=== PATIENT | female | born 1985 | race American Indian/Alaskan Native ===

== ENCOUNTER 2017-05-25 10:19 | Emergency (ER) | payer MEDICAID ==
--- NOTE | 2017-05-25 11:18 | XRay Report ---
RIGHT SHOULDER RADIOGRAPHS INDICATION: Right shoulder pain. COMPARISON: None similar. FINDINGS: Frontal and Y views of the right shoulder, 3 projections demonstrate normal humeral head contour, well positioned against the glenoid. Normal acromioclavicular joint. Preserved scapular contour. Normal visualized soft tissues, right ribs and lung. CONCLUSION: No acute right shoulder radiographic abnormality, as described. Thank you for the opportunity to participate in this patient's care.
[2017-05-25] MEDS ORDERED: TORADOL IM ONE (12:49)
[2017-05-25] MEDS ORDERED: TORADOL ONE (12:49)
--- NOTE | 2017-05-25 12:54 | Emergency Department Report ---
ED Chest Pain HPI - General Chief Complaint: Extremity Problem,Nontraumatic Stated Complaint: CP X 3 DAYS Time Seen by Provider: 05/25/17 12:43 Source: patient Mode of arrival: Ambulatory Limitations: No Limitations - History of Present Illness Initial Comments: 31-year-old female with past medical history denies diabetes presents complaining of right-sided chest pain 2-4 days. Pain is sharp, constant, worse with movement and palpation. Pain is also felt in her right parascapular area when bending forward. Pain rated 6/10 intensity. Patient is right-hand dominant. 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 She does not work at this daycare daily and does not perform heavy lifting on a regular basis. No nasal shortness of breath, calf tenderness, edema, cough, fever, nausea, vomiting, or diaphoresis. No long- distance travel within 1 month and no previous history of DVT/PE or control pill use here patient also has a history of oral herpes and has a rash that occurred to the right side of her face lateral to her lips. - Related Data Previous Rx's Medication Instructions Recorded Last Taken Type HYDROcodone/ACETAMINOPHEN 1 tab PO Q6H PRN #10 tablet 02/01/13 Unknown Rx [Hydrocodon-Acetaminophen 5-300 mg] Prednisone [Prednisone 10 mg 10 mg PO .TAPER #1 tab.ds.pk 11/30/13 Unknown Rx (6-Day Pack, 21 Tabs)] Ibuprofen [Motrin] 800 mg PO Q8HR PRN #30 tablet 05/25/17 Unknown Rx Valacyclovir HCl [Valtrex] 2,000 mg PO BID #2 tablet 05/25/17 Unknown Rx Allergies Allergy/AdvReac Type Severity Reaction Status Date / Time Penicillins AdvReac Mild Rash Verified 12/13/12 23:54 Heart Score - HEART Score History: Slightly suspicious EKG: Normal Age: < 45 Risk factors: 1-2 risk factors Troponin: < normal limit HEART Score: 1 ED Review of Systems ROS: Stated complaint: CP X 3 DAYS Other details as noted in HPI Comment: All other systems reviewed and negative ED Past Medical Hx - Past Medical History Hx Hypertension: No Hx Congestive Heart Failure: No Hx Diabetes: Yes Hx Deep Vein Thrombosis: No Hx Renal Disease: No Hx Sickle Cell Disease: No Hx Seizures: No Hx Asthma: No Hx COPD: No Hx HIV: No - Surgical History Past Surgical History?: Yes Additional Surgical History: tubal ligation - Social History Smoking Status: Current Every Day Smoker Substance Use Type: None - Medications Home Medications: Home Medications Medication Instructions Recorded Confirmed Last Taken Type HYDROcodone/ACETAMINOPHEN 1 tab PO Q6H PRN #10 tablet 02/01/13 Unknown Rx [Hydrocodon-Acetaminophen 5-300 mg] Prednisone [Prednisone 10 mg 10 mg PO .TAPER #1 tab.ds.pk 11/30/13 Unknown Rx (6-Day Pack, 21 Tabs)] Ibuprofen [Motrin] 800 mg PO Q8HR PRN #30 tablet 05/25/17 Unknown Rx Valacyclovir HCl [Valtrex] 2,000 mg PO BID #2 tablet 05/25/17 Unknown Rx ED Physical Exam - General Limitations: No Limitations - Other Other exam information: General: No limitations, patient is alert in no acute distress Head exam: Atraumatic, normocephalic Eyes exam: Normal appearance ENT: Moist mucous membrane, normal oropharynx Neck exam: Normal inspection, full range of motion, no meningismus nontender Respiratory exam: Clear to auscultation bilateral, no wheezes, rales, crackles Cardiovascular: Normal rate and rhythm, reproducible tenderness to right pectoralis and right parascapular muscles. Abdomen: Soft, nondistended, and nontender, with normal bowel sounds, no rebound, or guarding Extremity: Full range of motion normal inspection no deformity, no calf tenderness or edema Back: Normal Inspection, full range of motion, no tenderness Neurologic: Alert, oriented x3, cranial nerves intact, no motor or sensory deficit Psychiatric: normal affect, normal mood Skin: Vesicular of vesicles on the right of her face lateral to her lips. ED Course Vital Signs 05/25/17 10:29 Temperature 98.7 F Pulse Rate 77 Respiratory 16 Rate Blood Pressure 130/82 O2 Sat by Pulse 99 Oximetry - Reevaluation(s) Reevaluation #1: 05/25/17 12:51 Toradol IM for pain ED Medical Decision Making - EKG Data -: EKG Interpreted by Me EKG shows normal: sinus rhythm, axis (53), QRS complexes (85), ST-T waves (no ST elevation or T-wave inversion) Rate: normal (72) - EKG Data When compared to previous EKG there are: previous EKG unavailable - Radiology Data Radiology results: report reviewed Right shoulder x-ray no acute findings read by radiologist - Medical Decision Making Patient has recent history of heavy lifting which is abnormal for her. Reproducible right-sided pain likely musculoskeletal. Will treated symptomatically. Facial rash likely herpes given previous history appetite was also on the differential but no honey crusted lesions. Patient typically takes Valtrex with outbreaks and is requesting a prescription - Differential Diagnosis musculoskeletal pain, PE, pleurisy Critical Care Time: No Critical care attestation.: If time is entered above; I have spent that time in minutes in the direct care of this critically ill patient, excluding procedure time. ED Disposition Clinical Impression: Chest wall muscle strain, Herpetic lesions of face Disposition: DC-01 TO HOME OR SELFCARE Is pt being admited?: No Does the pt Need Aspirin: No Condition: Stable Instructions: Thoracic Pain (ED), Oral Herpes Simplex Virus Infections (ED) Additional Instructions: Take the medication as prescribed. Return if symptoms worsen as indicated by your discharge structures. Prescriptions: Ibuprofen [Motrin] 800 mg PO Q8HR PRN #30 tablet PRN Reason: Pain Valacyclovir HCl [Valtrex] 2,000 mg PO BID #2 tablet Referrals: JOE ALVAREZ [Other] - 3-5 Days Time of Disposition: 12:59
[2017-05-25 13:07] VITALS: BP 127/80
== END 2017-05-25 13:05 | disposition home or self-care (01) ==
LOC: ED 10:19
DX: S29.011A Strain of muscle and tendon of front wall of thorax, initial encounter (principal); E11.9 Type 2 diabetes mellitus without complications; F17.200 Nicotine dependence, unspecified, uncomplicated; B00.9 Herpesviral infection, unspecified; Z88.0 Allergy status to penicillin; X50.9XXA Other and unspecified overexertion or strenuous movements or postures, initial encounter; Y93.89 Activity, other specified; Y92.89 Other specified places as the place of occurrence of the external cause; Y99.8 Other external cause status
CPT/HCPCS: 73030; 93005; 93010; 96372; 99283; J1885